=== PATIENT | male | born 1980 | race Caucasian/White ===

== ENCOUNTER 2016-07-19 17:09 | Emergency (ER) | payer MEDICAID ==
[~2016-07-19] VITALS: Ht 170.2 cm; Wt 122.5 kg
[2016-07-19 21:43] VITALS: BP 137/77
== END 2016-07-19 21:43 | disposition home or self-care (01) ==
LOC: ED 17:09
DX: L29.9 Pruritus, unspecified (principal); R11.0 Nausea
CPT/HCPCS: J7512; Q0162; Q0163